=== PATIENT | female | born 1990 | race African-American/Black ===

== ENCOUNTER 2019-09-13 14:33 | Emergency (ER) | payer OTHER ==
[2019-09-13 14:56] VITALS: BP 148/93
--- NOTE | 2019-09-13 15:17 | ER Document Report ---
ED Medical Screen (RME) - General Chief Complaint: Mouth Problem Stated Complaint: MOUTH PAIN, FACIAL SWELLING Time Seen by Provider: 09/13/19 15:10 Primary Care Provider: RIOG MACK FNP-BC [Primary Care Provider] - Follow up as needed Mode of Arrival: Ambulatory Information source: Patient Notes: 28-year-old female patient presents emergency department with multiple vague symptoms. Patient reports pain in her jaw and face anytime she eats, she also reports numbness on the right side of her tongue. She denies any unilateral body weakness. She also reports pain along the side of her face. Denies any dental issues. Denies any fevers, nausea, vomiting, diarrhea. Palpable but nontender postauricular lymph node. No obvious dental infection noted. I have greeted and performed a rapid initial assessment of this patient. A comprehensive ED assessment and evaluation of the patient, analysis of test results and completion of the medical decision making process will be conducted by additional ED providers. I have specifically instructed the patient or family members with the patient to immediately return to any nursing staff should anything change in the patient's condition or with their chief complaint. TRAVEL OUTSIDE OF THE [place] IN LAST 30 DAYS: No - Related Data Allergies/Adverse Reactions: No Known Allergies Allergy (Verified 09/13/19 15:10) Physical Exam - Vital signs Vitals: Temp Pulse Resp BP Pulse Ox 97.6 F 94 16 148/93 H 100 09/13/19 14:54 09/13/19 14:54 09/13/19 14:54 09/13/19 14:54 09/13/19 14:54 Course - Vital Signs Vital signs: Temp Pulse Resp BP Pulse Ox 97.6 F 94 16 148/93 H 100 09/13/19 14:54 09/13/19 14:54 09/13/19 14:54 09/13/19 14:54 09/13/19 14:54 Doctor's Discharge - Discharge Referrals: RIGO MACK FNP-BC [Primary Care Provider] - Follow up as needed
--- NOTE | 2019-09-13 16:34 | ER Document Report ---
HPI - HPI Patient complains to provider of: Mouth pain Time Seen by Provider: 09/13/19 15:10 Onset: Last week Onset/Duration: Persistent Quality of pain: Achy Pain Level: 3 Context: Patient presents complaining of pain underneath the left side of her tongue. Patient states that area becomes painful when she eats and then improves. Patient denies any pain elicited from drinking fluids. Patient denies any fever. Patient denies any dental pain or cavities. Associated Symptoms: Other - Pain under left side of tongue. denies: Fever, Headache Exacerbated by: Food Relieved by: Denies Similar symptoms previously: No Recently seen / treated by doctor: No - ROS ROS below otherwise negative: Yes Systems Reviewed and Negative: Yes All other systems reviewed and negative - CONSTITUTIONAL Constitutional: DENIES: Fever - EENT Notes: Mouth pain - NEURO Neurology: DENIES: Headache - RESPIRATORY Respiratory: DENIES: Coughing - GASTROINTESTINAL Gastrointestinal: DENIES: Nausea, Patient vomiting - DERM Skin Color: Normal Skin Problems: None Past Medical History - General Information source: Patient - Social History Smoking Status: Never Smoker Frequency of alcohol use: None Drug Abuse: None Occupation: None Family History: Reviewed & Not Pertinent Patient has suicidal ideation: No Patient has homicidal ideation: No - Medical History Medical History: Negative Surgical Hx: Negative Vertical Provider Document - CONSTITUTIONAL Agree With Documented VS: Yes Exam Limitations: No Limitations General Appearance: WD/WN, No Apparent Distress - INFECTION CONTROL TRAVEL OUTSIDE OF THE [place] IN LAST 30 DAYS: No - HEENT HEENT: Atraumatic, Normocephalic Notes: Tenderness to the left sublingual area, no overt swelling appreciated, no submental swelling. No dental tenderness, no gingival abscess, no trismus - NECK Neck: Normal Inspection, Supple. negative: Lymphadenopathy-Left, Lymphadenopathy-Right - RESPIRATORY Respiratory: Breath Sounds Normal, No Respiratory Distress - CARDIOVASCULAR Cardiovascular: Regular Rate, Regular Rhythm, No Murmur - BACK Back: Normal Inspection - MUSCULOSKELETAL/EXTREMETIES Musculoskeletal/Extremeties: MAEW - NEURO Level of Consciousness: Awake, Alert, Appropriate Motor/Sensory: No Motor Deficit - DERM Integumentary: Warm, Dry, No Rash Course - Re-evaluation Re-evalutation: 09/13/19 16:53 Patient without any overt swelling, no potential airway compromise. Patient does have tenderness to the sublingual salivary gland area. Will encourage outpatient follow-up with ENT. Patient encouraged to suck on sour candies and increase oral hydration. - Vital Signs Vital signs: Temp Pulse Resp BP Pulse Ox 97.6 F 94 16 148/93 H 100 09/13/19 14:54 09/13/19 14:54 09/13/19 14:54 09/13/19 14:54 09/13/19 14:54 Discharge - Discharge Clinical Impression: sublingual gland tenderness Condition: Stable Disposition: HOME, SELF-CARE Instructions: Antibiotic Therapy ([facility]), Cephalexin ([facility]), Oral Narcotic Medication ([facility]) Additional Instructions: Return immediately for any new or worsening symptoms Followup with your primary care provider, call tomorrow to make a followup appointment suck on sour candies and stay well hydrated Prescriptions: Acetaminophen with Codeine [Tylenol #3 Tablet] 1 each PO Q6HP PRN #8 tablet PRN Reason: Clindamycin HCl [Cleocin 300 mg Capsule] 300 mg PO TID #21 capsule Naproxen [Naprosyn 250 Nmg Tablet] 1 tab PO BID #14 tablet Referrals: RIGO MACK FNP-BC [Primary Care Provider] - Follow up as needed [facility] [Provider Group] - Follow up in 3-5 days
== END 2019-09-13 17:18 | disposition home or self-care (01) ==
LOC: ER 14:33
DX: K11.9 Disease of salivary gland, unspecified (principal); K08.89 Other specified disorders of teeth and supporting structures
CPT/HCPCS: 99282

== ENCOUNTER → 2019-09-23 | Outpatient (CLI) | payer OTHER ==
--- NOTE | 2019-09-23 16:32 | RADIOLOGY REPORT (SQ) ---
EXAM DESCRIPTION: CT SOFT TISSUE NECK WITH COMPLETED DATE/TIME: 09/23/2019 6:57 am REASON FOR STUDY: SALIVARY GLAND STONE (K11.5) K11.5 SIALOLITHIASIS swelling bilateral sides of ne ck. Stone present. COMPARISON: None. TECHNIQUE: Post IV contrasted scanning from skull base through lung apices with review of bone, soft tissue and lung windows. Reconstructed coronal and sagittal MPR images reviewed. All images stored on PACS. All CT scanners at this facility use dose modulation, iterative reconstruction, and/or weight based d osing when appropriate to reduce radiation dose to as low as reasonably achievable (ALARA). [facility]: Dose Right [facility]: CareDose [facility]: Dose Right [facility]: Teradose 4D [facility]: Prism Digital CONTRAST TYPE AND DOSE: contrast/concentration: Isovue 350.00 mg/ml; Total Contrast Delivered: 75.0 ml; Total Saline Delivered: 55.0 ml RENAL FUNCTION: GFR > 60. RADIATION DOSE: . LIMITATIONS: None. FINDINGS: SKULL BASE: Intact. MAJOR SALIVARY GLANDS: There is a 6 mm sialolith in the left submandibular duct with moderate left du ctal dilation extending to the submandibular gland. The duct measures up to 5 mm diameter. No right submandibular stone or ductal dilation. No surrounding inflammatory change. Parotid glands are sym metric with normal appearance. No surrounding inflammatory change. LYMPHADENOPATHY: There are prominent left cervical lymph nodes the largest measuring 1.6 x 1.3 cm at the retromandibular region. MUCOSAL MASSES OR ASYMMETRY: No mucosal masses or asymmetry. LARYNX/CORDS: No abnormal findings. VASCULAR STRUCTURES: The major vessels are patent. LUNG APICES: Clear. BONES: Intact. THYROID: Normal size. No masses. PARANASAL SINUSES: Clear. OTHER: No other significant finding. IMPRESSION: 1. 6 mm left submandibular sialolith with moderate left salivary duct dilation. No surrounding infla mmatory change. 2. Mildly enlarged left cervical lymph nodes may be reactive. TECHNICAL DOCUMENTATION: JOB ID: [id number] Quality ID # [id number]: Final reports with documentation of one or more dose reduction techniques (e.g., Au tomated exposure control, adjustment of the mA and/or kV according to patient size, use of iterative reconstruction technique) 2010 [employer]- All Rights Reserved Reading location - IP/workstation name: [email or web address]
== END ==
LOC: RAD 07:33
PROVIDERS: ATTEND Otolaryngology
DX: K11.5 Sialolithiasis (principal)
CPT/HCPCS: 70491

== ENCOUNTER → 2020-03-20 | Outpatient (CLI) | payer OTHER ==
--- NOTE | 2020-03-21 14:59 | RADIOLOGY REPORT (SQ) ---
EXAM DESCRIPTION: U/S THYROID/SFT TISS HD NECK IMAGES COMPLETED DATE/TIME: 03/20/2020 7:49 pm REASON FOR STUDY: E07.89 OTHER SPECIFIED DISORDERS OF THYROID E07.89 OTHER SPECIFIED DISORDERS OF T HYROID COMPARISON: CT soft tissue neck 09/23/2019 TECHNIQUE: Dynamic and static manjarrez-scale images acquired of the thyroid gland. Selected additional c olor/power Doppler images recorded. Ultrasound of the left parotid gland was also performed. All images stored to PACS. LIMITATIONS: None. FINDINGS: RIGHT LOBE: Normal size, 4.7 x 2.1 x 1.6 cm. Homogeneous echotexture. In the right midpo le gland, a 6 x 4 mm spongiform hypoechoic nodule is present with single macro calcifications. This is wider than tall with smooth margins and represents a TI-RADS 3 lesion LEFT LOBE: Normal size, 4.4 x 1.6 x 1.1 cm. Homogeneous echotexture. In the midpole gland, a 9 x 5 mm spongiform hypoechoic nodule is present with single macro calcification. This is wider than tall, with smooth margins, and represents a TI-RADS 3 lesion. An anechoic cyst is present the left lower pole thyroid, 6 x 3 mm size (TI-RADS 1) ISTHMUS: Normal size. Homogeneous echotexture. No cystic or solid masses. The OTHER: Ultrasound over the left parotid gland was performed. A 6 mm well-circumscribed hypoechoi c/anechoic intraparotid lymph node present along the inferior aspect of the superficial lobe. This c orrelates with CT exam 09/23/2019. Incidental finding of a 2 x 0.8 cm jugulodigastric lymph node, upp er limits of normal. IMPRESSION: Small thyroid nodules bilaterally, TI-RADS 3 COMMENT: The [employer] ([employer]) Thyroid Imaging Reporting And Data System (TI-RADS ) is an ultrasound feature based summed scoring system of risk categorization and management recommen dations for thyroid nodules. TI-RADS assessment categories are as follows: 0 - Incomplete exam: Additional imaging or comparison to prior examinations recommended. 1. - Benign: Fine-needle aspiration or follow-up not routinely recommended in the absence of clinical change. 2. - Not suspicious: Fine-needle aspiration or follow-up not routinely recommended in the absence of clinical change. 3. - Mildly suspicious: Fine-needle aspiration recommended if greater than or equal to 2.5 cm in size . Ultrasound follow-up recommended if greater than or equal to 1.5 cm in size. 4. - Moderately suspicious: Fine-needle aspiration recommended if greater than or equal to 1.5 cm in size. Ultrasound follow-up recommended if greater than or equal to 1.0 cm in size. 5. - Highly suspicious: Fine-needle aspiration recommended if greater than or equal to 1.0 cm in size . Ultrasound follow-up recommended if greater than or equal to 0.5 cm in size. TECHNICAL DOCUMENTATION: JOB ID: [id number] 2010 [employer]- All Rights Reserved Reading location - IP/workstation name: [email or web address]
== END ==
LOC: RAD 17:38
PROVIDERS: ATTEND Otolaryngology
DX: E04.1 Nontoxic single thyroid nodule (principal)
CPT/HCPCS: 76536